=== PATIENT | female | born 1990 | race Caucasian/White ===

== ENCOUNTER 2021-08-02 06:59 | Observation (INO) | payer BC ==
[2021-08-02] MEDS ORDERED: Misoprostol 50 MCG (1/2 of 100 MCG) Tab VAG ONE (07:48)
--- NOTE | 2021-08-02 08:13 | PCM.LDHP ---
L&D History of Present Illness - General Date of Service: 08/02/21 Admit Problem/Dx: Patient Status Order with Admit Dx/Problem 08/02/21 08:02 Patient Status [ADT] Routine Admission Diagnosis/Problem Admission Diagnosis/Problem Large for dates fetus Source of Information: Patient History Limitations: Reports: No Limitations - History of Present Illness Timing/Duration: Reports: other (uterine irritability) Location, : Reports: Abdomen Improves with: Reports: None Worsens with: Reports: None - Related Data Allergies/Adverse Reactions: Allergies Allergy/AdvReac Type Severity Reaction Status Date / Time clindamycin Allergy Rash Verified 08/02/21 07:50 gluten Allergy Diarrhea Verified 08/02/21 07:50 lactase [From Dairy Aid] Allergy Diarrhea Verified 08/02/21 07:51 Past Medical History : 1 Para: 0 LMP (Approximate): (SHELDON 08/04/21) H&P Review of Systems - Review of Systems: Review Of Systems: See Below General: Reports: No Symptoms HEENT: Reports: No Symptoms Pulmonary: Reports: No Symptoms Cardiovascular: Reports: No Symptoms Gastrointestinal: Reports: No Symptoms Genitourinary: Reports: No Symptoms Musculoskeletal: Reports: No Symptoms Skin: Reports: No Symptoms Psychiatric: Reports: No Symptoms Neurological: Reports: No Symptoms Hematologic/Lymphatic: Reports: No Symptoms Immunologic: Reports: No Symptoms L&D Exam - Exam Exam: See Below - OB Specific Contraction Intensity: Irritability Movement: Active Heart Tones: Present Heart Rate (FHR) Variability: Moderate (6-25 bpm) Presentation: Vertex - Bedoya Score Bedoya Score Cervix Position: Midposition Bedoya Score Consistency: Soft Bedoya Score Effacement: 51-70% Bedoya Score Dilation: Closed Bedoya Score Infant's Station: -1 ,0 Bedoya Score Total: 7 - Exam General: Alert, Oriented HEENT: PERRLA, Conjunctiva Clear, Posterior Pharynx Clear Neck: Supple Lungs: Normal Respiratory Effort Cardiovascular: Regular Rate GI/Abdominal Exam: Soft Genitourinary: Normal external exam, Enlarged uterus, Vaginal discharge Back Exam: Full Range of Motion Extremities: Normal Inspection, Normal Range of Motion, Non-Tender Skin: Warm, Dry, Intact Neurological: Cranial Nerves Intact Psychiatric: Alert, Normal Affect, Normal Mood - Patient Data Lab Results Last 24 hrs: Laboratory Results - last 24 hr 08/02/21 08/02/21 08/02/21 Range/Units 07:22 07:24 07:39 WBC 9.6 (3.2-11.0) K/uL RBC 3.82 (3.77-5.24) M/uL Hgb 12.5 (11.2-15.5) Hct 37.0 (34.3-46.0) % MCV 96.9 (81.4-99.0) fL MCH 32.7 (31.6-35.5) pg MCHC 33.8 (31.6-35.5) g/dL Plt Count 216 (130-375) K/uL Immature Gran % (Auto) 2.1 H (0.0-0.7) % Neut % (Auto) 74.8 (40.0-78.1) % Lymph % (Auto) 13.4 (11.4-47.7) % [place] % (Auto) 8.3 (3.3-12.6) % Eos % (Auto) 0.8 (0.0-5.4) % Baso % (Auto) 0.6 (0.1-1.3) % Neut # (Auto) 7.18 (1.0-7.6) K/uL Lymph # (Auto) 1.29 (0.8-3.3) K/uL Kidder # (Auto) 0.80 (0.20-0.90) K/uL Eos # (Auto) 0.08 L (0.60-0.80) K/uL Baso # (Auto) 0.06 (0.00-0.10) K/uL Immature Gran # (Auto) 0.20 (0.00-0.23) K/uL Urine Color Yellow (YELLOW) Urine Appearance Slightly cloudy A (CLEAR) Urine pH 6.5 (5.0-8.0) Ur Specific [place] 1.025 (1.008-1.030) Urine Protein Negative (NEGATIVE) mg/dL Urine Glucose (UA) Negative (NEGATIVE) mg/dL Urine Ketones Negative (NEGATIVE) mg/dL Urine Occult Blood Negative (NEGATIVE) Urine Nitrite Negative (NEGATIVE) Urine Bilirubin Negative (NEGATIVE) Urine Urobilinogen 0.2 (0.2-1.0) EU/dL Ur Leukocyte Esterase Negative (NEGATIVE) Urine RBC 0-5 (0-5) Urine WBC 0-5 (0-5) Ur Epithelial Cells Rare Amorphous Sediment Few Urine Bacteria Moderate Urine Mucus Not seen Urine Opiates Screen Negative (NEGATIVE) Ur Oxycodone Screen Negative (NEGATIVE) Urine Methadone Screen Negative (NEGATIVE) Ur Propoxyphene Screen Negative (NEGATIVE) Ur Barbiturates Screen Negative (NEGATIVE) Ur Tricyclics Screen Negative (NEGATIVE) Ur Phencyclidine Scrn Negative (NEGATIVE) Ur Amphetamine Screen Negative (NEGATIVE) U Methamphetamines Scrn Negative (NEGATIVE) Urine MDMA Screen Negative (NEGATIVE) U Benzodiazepines Scrn Negative (NEGATIVE) U Cocaine Metab Screen Negative (NEGATIVE) U Marijuana (THC) Screen Negative (NEGATIVE) Result Diagrams: 08/02/21 07:39 - Problem List (1) Infant large for gestational age SNOMED Code(s): 550925668 ICD Code: P08.1 - OTHER HEAVY FOR GESTATIONAL AGE Status: Acute Current Visit: Yes (2) Normal IUP (intrauterine ) on ultrasound SNOMED Code(s): 93294036, 700920123, 718944044, 941239141 ICD Code: Z34.90 - ENCNTR FOR SUPRVSN OF NORMAL , UNSP, UNSP TRIMESTER Status: Acute Current Visit: Yes Qualifiers: Trimester: third trimester Qualified Code(s): Z34.93 - Encounter for supervision of normal , unspecified, third trimester Problem List Initiated/Reviewed/Updated: Yes Orders Last 24hrs: Active Orders 24 hr Category Date Time Status Patient Status [ADT] Routine ADT 08/02/21 08:02 Ordered Antiembolic Devices [RC] .Routine Care 08/02/21 08:04 Ordered Notify Provider [RC] PRN Care 08/02/21 08:02 Ordered VTE/DVT Education [RC] Click to Edit Care 08/02/21 08:04 Ordered Vital Signs [RC] PER UNIT ROUTINE Care 08/02/21 08:02 Ordered Regular Diet [DIET] Diet 08/02/21 Lunch Ordered CBC W/O DIFF,HEMOGRAM [HEME] Routine Lab 08/02/21 08:05 Ordered COVID-19/FLU A+B/RSV [MOLEC] Stat Lab 08/02/21 07:23 Ordered DVT/VTE Prophylaxis Reflex [OM.PC] Routine Oth 08/02/21 08:02 Ordered Resuscitation Status Routine Resus Stat 08/02/21 08:02 Ordered Assessment/Plan Comment:: 08/02/21 30 year old G1 39 5/7 weeks large fetsu cervical ripening today Will monitor for cervical change laor if nothing today will send home and return in the next day or two
[2021-08-02 08:30] LABS: CORONAVIRUS COVID-19 NAA NEGATIVE (NEGATIVE)
[2021-08-02] MEDS ORDERED: Lactated Ringers 500 ML IV SCH (10:00)
[2021-08-02] MEDS ORDERED: Lactated Ringers 500 ML IV ONE (10:15)
--- NOTE | 2021-08-02 15:13 | PCM.PNLD ---
Labor Progress Note - VS & Meds Vital Signs: Last Vital Signs Temp 96.8 F L 08/02/21 12:00 Pulse 84 08/02/21 12:00 Resp 16 08/02/21 12:00 BP 119/71 08/02/21 12:00 Pulse Ox 100 08/02/21 12:00 Active Medications: Current Medications Discontinued Medications Lactated Ringer's (Ringers, Lactated) 500 mls @ 999 mls/hr IV ASDIRECTED ONE Stop: 08/02/21 10:45 Last Admin: 08/02/21 10:00 Dose: 999 mls/hr Documented by: Misoprostol (Misoprostol 50 Mcg (1/2 Of 100 Mcg) Tab) 50 mcg VAG ONETIME ONE Stop: 08/02/21 07:49 Last Admin: 08/02/21 07:55 Dose: 50 mcg Documented by: - Uterine Contractions Uterine Monitoring Mode: External [place] Contraction Frequency (min): 1 - 3 Contraction Duration (sec): 30 - 70 Contraction Intensity: Mild Uterine Resting Tone: Soft - Monitoring Monitor Mode: External Ultrasound Heart Rate (FHR) Baseline: 145 Heart Rate (FHR) Variability: Moderate (6-25 bpm) Accelerations: Present, 15x15 Decelerations: Variable Strip Review: Category I - Vaginal Exam Dilation (cm): 1 Effacement (Percent): 80 Station: 0 Cervical Position: Midposition Sterile Vaginal Exam Performed By: Harriet Ovalles Vaginal Exam Comment: low thin and starting to dilate. - Labor Progress (Free Text) Labor Progress: Home tonight and return in AM for pitocin induction if no labor overnight.
== END 2021-08-02 15:45 | disposition home or self-care (01) ==
LOC: JP.OBCHECK 06:59 → JP.OB 07:03 → JP.OBCHECK 07:44 → JP.OB 07:45
PROVIDERS: ADMIT Nurse Practitioner Family; ATTEND Nurse Practitioner Family
DX: O36.63X0 Maternal care for excessive fetal growth, third trimester, not applicable or unspecified (principal); Z3A.39 39 weeks gestation of pregnancy; Z88.8 Allergy status to other drugs, medicaments and biological substances; Z88.1 Allergy status to other antibiotic agents; Z20.822 Contact with and (suspected) exposure to COVID-19
CPT/HCPCS: 0241U; 36415; 80305; 81001; 85025; A9270; G0378; J7120; 99211

== ENCOUNTER 2021-08-03 01:17 | Inpatient (IN) | payer BC ==
[2021-08-03] MEDS ORDERED: Lactated Ringers 1,000 ML IV ONE (05:34)
[2021-08-03] MEDS ORDERED: Sodium Chloride 0.9% 10 ML Syringe FLUSH PRN (05:34)
[2021-08-03] MEDS ORDERED: Lactated Ringers 1,000 ML IV SCH ×2 (07:45→16:00)
[2021-08-03] MEDS ORDERED: ePHEDrine 50 MG/ML SDV ONE (13:57)
[2021-08-03] MEDS ORDERED: Oxytocin 10 Units/1 ML SDV ONE (13:57)
[2021-08-03] MEDS ORDERED: cefOXitin 2 GM Vial ONE (13:57)
[2021-08-03] MEDS: cefOXitin 1 GM Vial ONE ×3 (14:22→17:35)
[2021-08-03] MEDS: Oxytocin 10 Units/1 ML SDV ONE ×3 (14:23→17:20)
[2021-08-03] MEDS ORDERED: Ondansetron 4 MG/2 ML SDV ONE (17:30)
[2021-08-03] MEDS ORDERED: Meperidine PF 25 MG/ML Syringe ONE (17:47)
[2021-08-03] MEDS ORDERED: Ondansetron 4 MG/2 ML SDV IVPUSH PRN (19:37)
[2021-08-03] MEDS ORDERED: hydrOXYzine HCl 25 MG Tab PO PRN (19:37)
[2021-08-03] MEDS ORDERED: LACTATED RINGERS IV ONE ×2 (19:45)
[2021-08-03] MEDS ORDERED: OXYTOCIN IV ONE ×2 (19:45)
[2021-08-03] MEDS ORDERED: DEXTROSE 5% IV ONE ×2 (19:45)
[2021-08-03] MEDS: HYDROmorphone/Normal Saline 6 MG/30 ML PCA Vial IV PRN (19:58)
[2021-08-03] MEDS ORDERED: Naloxone 0.4 MG/ML SDV IV PRN (20:00)
[2021-08-03] MEDS: cefOXitin 2 GM in Sodium Chloride 0.9% 50 ML IV SCH (20:34)
[2021-08-03] MEDS: Dextrose 5%-Lactated Ringers 1,000 ML IV SCH (20:36)
[2021-08-03] MEDS: Ibuprofen 600 MG Tab PO SCH (23:01)
[2021-08-03] MEDS: Acetaminophen 500 MG Tab PO SCH (23:12)
[2021-08-04] MEDS: Dextrose 5%-Lactated Ringers 1,000 ML IV SCH ×3 (02:54→22:42)
[2021-08-04] MEDS: Ibuprofen 600 MG Tab PO SCH ×4 (02:55→20:40)
[2021-08-04] MEDS: cefOXitin 2 GM in Sodium Chloride 0.9% 50 ML IV SCH ×4 (02:55→20:29)
[2021-08-04] MEDS: HYDROmorphone/Normal Saline 6 MG/30 ML PCA Vial IV PRN ×2 (04:15→14:58)
[2021-08-04] MEDS: Acetaminophen 500 MG Tab PO SCH ×4 (04:19→22:44)
[2021-08-04] MEDS ORDERED: Dextrose 5%-Lactated Ringers 1,000 ML IV SCH (07:15)
[2021-08-04] MEDS: Bisacodyl 5 MG Tab PO SCH ×2 (08:01→20:40)
[2021-08-04] MEDS: Docusate Sodium 100 MG Cap PO SCH ×2 (08:01→20:40)
[2021-08-05] MEDS: HYDROmorphone/Normal Saline 6 MG/30 ML PCA Vial IV PRN (01:01)
[2021-08-05] MEDS: Ibuprofen 600 MG Tab PO SCH (01:12)
[2021-08-05] MEDS: cefOXitin 2 GM in Sodium Chloride 0.9% 50 ML IV SCH ×2 (01:13→07:53)
[2021-08-05] MEDS: Acetaminophen 500 MG Tab PO SCH ×4 (04:53→22:23)
[2021-08-05] MEDS ORDERED: oxyCODONE 5 MG Tab PO PRN (07:21)
[2021-08-05] MEDS ORDERED: Magnesium Hydroxide 400 MG/5 ML Susp 30 ML Cup PO PRN (07:24)
[2021-08-05] MEDS: Bisacodyl 5 MG Tab PO SCH ×2 (08:23→20:41)
[2021-08-05] MEDS: Ibuprofen 400 MG Tab PO PRN ×2 (08:23→19:24)
[2021-08-05] MEDS: Docusate Sodium 100 MG Cap PO SCH ×2 (08:23→20:41)
[2021-08-05] MEDS ORDERED: Magnesium Hydroxide 400 MG/5 ML Susp 30 ML Cup PO ONE (09:00)
[2021-08-06] MEDS: Acetaminophen 500 MG Tab PO SCH ×2 (05:05→11:20)
[2021-08-06] MEDS: Bisacodyl 5 MG Tab PO SCH (08:18)
[2021-08-06] MEDS: Docusate Sodium 100 MG Cap PO SCH (08:18)
== END 2021-08-06 12:30 | disposition home or self-care (01) | DRG 540 ==
LOC: JP.OBCHECK 01:17 → JP.OB 01:20 → JP.OBCHECK 07:32 → JP.OB 07:33 → OBSVTOIN 17:18 → JP.MS 18:00
PROVIDERS: ADMIT Surgery; ATTEND Surgery
PROC: 10D00Z1 Extraction of Products of Conception, Low, Open Approach (ICD-10-PCS; principal; 2021-08-03)
PROC: 0WQF0ZZ Repair Abdominal Wall, Open Approach (ICD-10-PCS; 2021-08-03)
PROC: 3E0P7VZ Introduction of Hormone into Female Reproductive, Via Natural or Artificial Opening (ICD-10-PCS; 2021-08-03)
DX: O62.2 Other uterine inertia (principal); K43.9 Ventral hernia without obstruction or gangrene; O99.613 Diseases of the digestive system complicating pregnancy, third trimester; Z3A.39 39 weeks gestation of pregnancy; Z37.0 Single live birth
CPT/HCPCS: 36415; 76819; 76819-26; 81001; 84112; 85025; 86850; 86900; 86901; 86920; 86922; 99211; A9270-GY; J0694; J1170; J1790; J2175; J2405; J2590; J7120; J7121

== ENCOUNTER 2021-09-06 13:47 | Emergency (ER) | payer BC, MEDICAID | END 2021-09-06 15:09 | disposition home or self-care (01) | LOC: JP.ED 13:47 | DX: G89.18 Other acute postprocedural pain (principal); R10.9 Unspecified abdominal pain | CPT/HCPCS: 99283 ==